=== PATIENT | female | born 1965 | race Caucasian/White ===

== ENCOUNTER 2018-02-11 11:26 | Outpatient (CLI) | payer BC, SELFPAY ==
--- NOTE | 2018-02-11 11:55 | DI.RAD_ITS ---
SYMPTOMS/DIAGNOSIS: COUGH, R05, ? BRONCHITIS PA AND LATERAL CHEST: There are no prior comparison exams. The heart size is at the upper limits of normal. The aorta appears normal in diameter. The lungs are clear. No infiltrate or effusion is seen. There are no visible emphysematous or fibrotic changes.
[2018-02-11 12:26] LABS: Abs Immature Grans 0.02 k/cumm (0.0-0.09); Absolute Basophil Count 0.03 k/cumm (0.0-0.2); Absolute Eosinophil Count 0.08 k/cumm (0.0-0.7); Absolute Lymphocyte Count 1.33 k/cumm (1.2-3.4); Absolute Neutrophil Count 6.92 k/cumm (1.2-6.7); Basophils % 0.3; Eosinophils % 0.9; HCT 34.4 % (36.0-46.0); HGB 11.4 g/dL (12.0-15.5); Immature Grans % 0.2; Lymphocytes % 14.2; Mean Corp. HGB Concentration 33.1 g/dL (32.0-36.0); Mean Corpuscular Hemoglobin 28.8 pg (27.0-33.0); Mean Corpuscular Volume 86.9 fL (80-95); Mean Platelet Volume 10.2 fL (8.0-11.0); Monocytes % 10.7; Neutrophils % 73.7; Platelet Count 318 x1000/uL (130-400); RBC 3.96 m/cumm (4.00-5.20); RBC Distribution Width 12.3 % (11.7-14.6); White Blood Cell Count 9.38 k/cumm (4.4-10.8)
[2018-02-11 13:21] LABS: ALT 41 U/L (12-78); AST 42 U/L (15-37); Albumin 2.4 g/dL (3.4-5.0); Alkaline Phosphatase 243 U/L (46-116); Anion Gap 10.9 mmol/L (3-11); BUN 10 mg/dL (7-18); Bilirubin, Total 0.4 mg/dL (0.2-1.0); CO2 30.1 mmol/L (21.0-32.0); CREATININE 0.85 mg/dL (0.55-1.02); Calcium 9.3 mg/dL (8.5-10.1); Chloride 98 mmol/L (98-107); Glucose 104 mg/dL (70-100); Potassium 3.8 mmol/L (3.5-5.1); Sodium 139 mmol/L (136-145); TSH 3.41 uIU/mL (0.358-3.74)
[2018-02-11 13:40] LABS: Bilirubin Negative (Negative); Blood Negative (Negative); Clarity Sl Cloudy; Glucose Negative (Negative); Ketones Negative (Negative); Leukocyte Esterase Small (Negative); Nitrite Negative (Negative); Specific Gravity 1.015 (1.005-1.025); Urobilinogen 0.2 EU/dL (Up TO 0.2)
[2018-02-11 14:25] LABS: GGT 238 U/L (5-55)
[2018-02-11 14:57] LABS: Bacteria Moderate HPF (Negative); Epithelial Cells Moderate HPF (Negative); RBC Negative (0-2)
[2018-02-11 14:58] LABS: C & S Indicated? No/Sq. Contamination; Casts Negative LPF (Negative); Crystals Negative HPF (Negative); Mucus Moderate (Negative)
== END 2018-02-11 11:46 ==
PROVIDERS: PCP Family Medicine; Visit Provider Family Medicine
DX: Z00.00 Encounter for general adult medical examination without abnormal findings (principal); R53.83 Other fatigue; R10.13 Epigastric pain; R63.4 Abnormal weight loss; R39.11 Hesitancy of micturition; R74.9 Abnormal serum enzyme level, unspecified; R05 Cough
CPT/HCPCS: 36415; 80053; 71046; 81003; 81015; 82977; 84443; 85025

== ENCOUNTER 2018-02-13 01:37 | Outpatient (CLI) | payer BC, SELFPAY ==
--- NOTE | 2018-02-13 08:45 | DI.US_ITS ---
SYMPTOMS/DIAGNOSIS: ABD PAIN, R10.9, ELEVATED ALK PHOS ABDOMEN ULTRASOUND: The liver shows innumerable complex, mixed solid and cystic lesions in both right and left lobes of the liver. The largest measures 6.6 cm in greatest dimension, in the left lobe of the liver. A solid appearing lesion is seen in the splenic hilum measuring 4.3 cm. A solid appearing mass is seen in the anterior mid left kidney measuring 2.2 x 2.9 cm. There is no hydronephrosis. The right kidney is unremarkable. No ascites is seen. The gallbladder is unremarkable. The aorta is of normal diameter. IMPRESSION: Innumerable liver lesions, likely representing metastatic disease. A mass is also seen at the splenic hilum as well as in the mid left kidney. CT is recommended for further evaluation.
== END 2018-02-13 01:57 ==
PROVIDERS: PCP Family Medicine; Visit Provider Naturopath
DX: R10.9 Unspecified abdominal pain (principal); R74.8 Abnormal levels of other serum enzymes; K76.9 Liver disease, unspecified; D73.89 Other diseases of spleen; N28.9 Disorder of kidney and ureter, unspecified
CPT/HCPCS: 76700

== ENCOUNTER 2018-02-14 01:53 | Outpatient (CLI) | payer BC, SELFPAY ==
[2018-02-14] MEDS: Omnipaque 350 MG/ML 100 ML BTL IJ (08:58)
[2018-02-14] MEDS: Breeza Beverage 473 ML BTL PO ×2 (08:59→09:00)
[2018-02-14] MEDS: Omnipaque 350 MG/ML 50 ML BTL PO (08:59)
--- NOTE | 2018-02-14 09:00 | DI.CT_ITS ---
SYMPTOM/DIAGNOSIS: F/U ABNL US, R93.2, ABNL LIVER AND BILIARY TRACT, RENAL MASS, ABD PAIN, ELEVATED ALK PHOS ABDOMEN AND PELVIC CT: CT scan of the abdomen and pelvis was performed following the uneventful administration of intravenous and oral contrast material. Comparison ultrasound is 02/13/18. There is a question of a 0.4 cm. nodule in the right lung base just above the hemidiaphragm. There are numerous hypodense masses within the liver suspicious for metastases. The largest is in the left lobe and measures 7.0 cm. transverse by 6.4 cm. AP by 5.4 cm. craniocaudad. The next largest lesion is seen in the right lobe of the liver and measures 6.2 cm. AP by 6.3 cm. transverse by 5.4 cm. craniocaudal. The portal and superior mesenteric veins are patent. The gallbladder is contracted but otherwise unremarkable. No biliary ductal dilatation is seen. There is a soft tissue mass seen in the region of the hilum of the spleen. It appears to involve the tail of the pancreas and extends into the splenic hilum. This mass measures 7.2 cm. AP by 6.8 cm. transverse by 4.7 cm. craniocaudad. It appears to encase portions of the splenic artery and vein. There is a mottled enhancement pattern of the spleen with a wedge shaped area of decreased attenuation in the lateral aspect of the spleen suspicious for infarct. The remainder of the pancreas is grossly unremarkable. No adrenal mass is seen. The right kidney shows normal enhancement. No evidence of a solid renal mass or obstruction. There is renal cortical atrophy of the left kidney. There is a hypodense lesion seen in the mid pole of the left kidney which may represent a cyst. This was present on the CT scan from 2007. The kidney has a similar appearance to the prior CT scan from 04/02/2007. No definite renal mass is appreciated. The urinary bladder is intact. The patient appears to be status post hysterectomy. There is atherosclerosis of the abdominal aorta but no aneurysmal dilatation is seen. Mildly enlarged lymph nodes are seen at the level of the superior mesenteric artery measuring 0.8 cm. in short axis diameter. No abdominal or pelvic ascites or pneumoperitoneum is present. The bowel shows no evidence of obstruction or inflammation. Note is made of a 1.7 cm., enhancing lesion adjacent to the spleen anteriorly, likely reflecting an accessory spleen. There are degenerative changes seen in the spine. No aggressive osseous lesions are identified. IMPRESSION: Mass centered in the region of the tail of the pancreas and the splenic hilum. Primary diagnostic concern is for a pancreatic neoplasm. Splenic neoplasm cannot be entirely excluded. The mass encases portions of the distal splenic artery and vein. No evidence of thrombosis is seen. Multiple hepatic masses consistent with hepatic metastatic disease. Wedge shaped area of decreased attenuation in the spleen suspicious for infarct. Question of a small nodule seen in the base of the right lower lobe. CT scan of the chest should be considered for further evaluation.
== END 2018-02-14 02:13 ==
PROVIDERS: PCP Family Medicine; Visit Provider Naturopath
DX: R10.9 Unspecified abdominal pain (principal); K86.89 Other specified diseases of pancreas; N28.89 Other specified disorders of kidney and ureter; R16.0 Hepatomegaly, not elsewhere classified; R91.1 Solitary pulmonary nodule; R59.0 Localized enlarged lymph nodes
CPT/HCPCS: 74177; J3490; Q9967

== ENCOUNTER 2018-03-07 15:58 | Outpatient (CLI) | payer BC, SELFPAY ==
[2018-03-07 16:41] LABS: HCT 31.9 % (36.0-46.0); HGB 10.2 g/dL (12.0-15.5); Mean Corpuscular Hemoglobin 27.3 pg (27.0-33.0); Mean Corpuscular Volume 85.5 fL (80-95); Mean Platelet Volume 9.3 fL (8.0-11.0); Platelet Count 434 x1000/uL (130-400); RBC 3.73 m/cumm (4.00-5.20); RBC Distribution Width 13.8 % (11.7-14.6); White Blood Cell Count 12.03 k/cumm (4.4-10.8)
[2018-03-07 17:50] LABS: ALT 80 U/L (12-78); AST 68 U/L (15-37); Albumin 2.7 g/dL (3.4-5.0); Alkaline Phosphatase 434 U/L (46-116); Anion Gap 9.5 mmol/L (3-11); BUN 12 mg/dL (7-18); Bilirubin, Total 0.5 mg/dL (0.2-1.0); CO2 28.5 mmol/L (21.0-32.0); CREATININE 0.72 mg/dL (0.55-1.02); Calcium 11.2 mg/dL (8.5-10.1); Chloride 98 mmol/L (98-107); GGT 621 U/L (5-55); Glucose 92 mg/dL (70-100); Potassium 4.5 mmol/L (3.5-5.1); Sodium 136 mmol/L (136-145); Total Protein 6.7 g/dL (6.4-8.2)
[2018-03-11 13:51] LABS: CA 19-9 10770 U/mL (<35)
== END 2018-03-07 16:18 ==
PROVIDERS: PCP Family Medicine; Visit Provider Family Medicine
DX: K86.9 Disease of pancreas, unspecified (principal); R74.8 Abnormal levels of other serum enzymes
CPT/HCPCS: 36415; 80053; 85027; 82977; 86301